=== PATIENT | female | born 1965 | race Caucasian/White ===

== ENCOUNTER 2020-02-08 08:52 | Emergency (ER) | payer OTHER, SELFPAY ==
[~2020-02-08] VITALS: Ht 180.3 cm; Wt 54.4 kg
[2020-02-08 08:54] VITALS: BP 128/66
--- NOTE | 2020-02-08 09:07 | NUR ---
TENT OF 2
--- NOTE | 2020-02-08 09:14 | NUR ---
PT AMB TO BED 8
--- NOTE | 2020-02-08 09:45 | NUR ---
TAMIA JAIMES OBTAINED AND SENT TO LAB
--- NOTE | 2020-02-08 09:50 | NUR ---
PATIENT PRESENTS TO ED WITH C/O DRY COUGH AND FEVER . PT STATES SX X 3 DAYS . DENIES N/V/D; SKIN IS PINK/WARM/DRY; AAOX4 WITH EVEN AND STEADY GAIT; LUNGS CLEAR BL; HR EVEN AND REGULAR; PT DENIES ANY FEVER, CP, SOB, OR COUGH AT THIS TIME; PATIENT STATES PAIN OF 0/10 AT THIS TIME; VSS; PATIENT POSITIONED FOR COMFORT; HOB ELEVATED; BEDRAILS UP X2; BED DOWN. ER MD MADE AWARE OF PT STATUS.
[2020-02-08 09:57] LABS: HEMATOCRIT 38.3 % (36-48); HEMOGLOBIN 12.9 g/dL (12.0-16.0); MEAN CORPUSCULAR HEMOGLOBIN 31 pg (27-31); MEAN CORPUSCULAR HGB CONC 34 g/dL (33-37); MEAN CORPUSCULAR VOLUME 92.2 fL (80-94); PLATELET COUNT (AUTO) 211 K/uL (140-450); RED BLOOD CELL COUNT(AUTO) 4.16 MIL/uL (4.20-5.40); WHITE BLOOD COUNT (AUTO) 21.3 K/uL (4.8-10.8)
[2020-02-08 10:10] LABS: LYMPHOCYTES % (MANUAL) 12 % (20-46); MONOCYTES % (MANUAL) 6 % (5-12)
[2020-02-08 10:14] LABS: ANION GAP 13.5 (8-16); CARBON DIOXIDE 27.6 mmol/L (21-32); CREATININE 0.8 mg/dL (0.6-1.3); POTASSIUM 4.1 mmol/L (3.5-5.1)
[2020-02-08 10:28] LABS: ALBUMIN 3.8 g/dL (3.4-5.0); TOTAL BILIRUBIN 0.5 mg/dL (0.0-1.0)
[2020-02-08 12:01] LABS: APPEARANCE,URINE HAZY (CLEAR); BILIRUBIN,URINE NEGATIVE (NEGATIVE); BLOOD, URINE 2+ (NEGATIVE); COLOR,URINE YELLOW (YELLOW); LEUKOCYTE ESTERASE ,URINE NEGATIVE (NEGATIVE); NITRITE, URINE NEGATIVE (NEGATIVE); PH,URINE 5.5 (5.0-9.0); UGLUCOSE NEGATIVE (NEGATIVE)
[2020-02-08 12:37] LABS: RBC,URINE 20-50 /HPF (0-5); WBC,URINE 0-5 /HPF (0-5)
[2020-02-08 12:38] LABS: HYALINE CASTS, URINE 0-10 /LPF (None Seen)
[2020-02-08 13:20] VITALS: BP 128/66
--- NOTE | 2020-02-08 13:20 | NUR ---
Patient discharged with v/s stable. Written and verbal after care instructions given and explained. Patient alert, oriented and verbalized understanding of instructions. Ambulatory with steady gait. All questions addressed prior to discharge. ID band removed. Patient advised to follow up with PMD. Rx of given. Patient educated on indication of medication including possible reaction and side effects. Opportunity to ask questions provided and answered. IV D/C'D CATHETER INTACT
== END 2020-02-08 13:20 | disposition home or self-care (01) ==
LOC: MED 08:52
DX: D72.825 Bandemia (principal); R50.9 Fever, unspecified; N12 Tubulo-interstitial nephritis, not specified as acute or chronic
CPT/HCPCS: 36415; 71045; 74177; 80053; 81001; 82550; 83605; 83615; 84484; 85025; 86140; 87426; 99285; Q0092; Q9967

== ENCOUNTER 2020-09-03 07:56 | Emergency (ER) | payer OTHER, SELFPAY ==
[~2020-09-03] VITALS: Ht 154.9 cm; Wt 62.6 kg
[2020-09-03 08:00] VITALS: BP 120/68
--- NOTE | 2020-09-03 08:04 | NUR ---
Patient ambulated with steady gait to bed 7.
--- NOTE | 2020-09-03 08:14 | NUR ---
X-Ray at bedside.
--- NOTE | 2020-09-03 08:34 | NUR ---
55 YEAR OLD FEMALE COMPLAINS OF LEFT WRIST PAIN X YESTERDAY. PT STATES SHE FELL ONTO WRIST AND HAS BEEN HURTING SINCE. LIMITED ROM, SITE SWOLLEN. RADIAL PULSE +2, CAP REFILL <3 SEC. PT AOX4, BREATHING EVEN AND UNLABORED, SKIN WARM AND DRY. BED IN LOWEST POSITION, LOCKED, BED RAIL UPX1. PMH - DENIES ALLERGIES - NKA
--- NOTE | 2020-09-03 09:15 | NUR ---
PER JOHNY, PLACED A VOLAR SPLINT ON PT'S LEFT WRIST, AND A SPLINT ADJUSTED AND PLACED ON LEFT ARM.
[2020-09-03] MEDS ORDERED: ACET-8386 PO (09:36)
--- NOTE | 2020-09-03 09:50 | NUR ---
PT RADIAL PULSE +2, CAP REFILL <3 SEC.
--- NOTE | 2020-09-03 09:50 | NUR ---
Patient discharged with v/s stable. Written and verbal after care instructions about radial fracture given and explained. Patient alert, oriented and verbalized understanding of instructions. Ambulatory with steady gait. All questions addressed prior to discharge. ID band removed. Patient advised to follow up with PMD. Rx of norco given. Patient educated on indication of medication including possible reaction and side effects. Opportunity to ask questions provided and answered.
[2020-09-03 09:51] VITALS: BP 120/68
== END 2020-09-03 09:50 | disposition home or self-care (01) ==
LOC: MED 07:56
DX: S52.502A Unspecified fracture of the lower end of left radius, initial encounter for closed fracture (principal); W01.0XXA Fall on same level from slipping, tripping and stumbling without subsequent striking against object, initial encounter; Y93.89 Activity, other specified; Y92.89 Other specified places as the place of occurrence of the external cause; Y99.8 Other external cause status
CPT/HCPCS: 73110; 99283